=== PATIENT | male | born 1960 ===

== ENCOUNTER → 2022-10-08 08:53 | Outpatient (CLI) | payer OTHER, SELFPAY ==
--- NOTE | ~2022-10-08 | CT_ITS ---
EXAMINATION: CT abdomen pelvis wo/w con DATE: 10/08/2022 10:03 INDICATION: Gross hematuria. Prostatitis. TECHNIQUE: Computed tomography (CT) of the abdomen and pelvis was performed without and subsequently with 130 CC Omnipaque 350 intravenous contrast. Automated exposure control and iterative reconstructi on technique were employed. Exam dose: 1836.46 mGy-cm total exam DLP. COMPARISON: None. FINDINGS: Bilateral fat-containing small foramen of [place]dalek hernias. The lung bases are clear of co nsolidation. Normal heart size. No pericardial or pleural effusion. The liver, gallbladder, bile ducts, spleen, pancreas, pancreatic duct, and adrenal glands and kidneys appear normal. No urinary tract calculus or hydroureteronephrosis. No filling defect of the renal co llecting structures, ureters or urinary bladder is evident. There is moderate diffuse thickening of t he urinary bladder, likely due to severe prostatomegaly. There are numerous prostate calcifications. Fat-containing left inguinal hernia. Normal caliber of the abdominal aorta. No intraperitoneal or retroperitoneal or pelvic mass lesion or adenopathy or ascites. Normal appendix. No suspicious osteolytic or osteoblastic lesions are noted. There are numerous diverticula of the sig moid colon; no CT evidence of diverticulitis. No bowel obstruction, bowel wall thickening, pneumatosi s or intraperitoneal free air is detected. IMPRESSION: Severe prostatomegaly, prostate calcification, with moderate associated bladder wall thi ckening Fat-containing left inguinal hernia Reviewed, dictated and finalized at [facility]. Reviewed, dictated and finalized at [facility]. [employer] IMPRESSION: Severe prostatomegaly, prostate calcification, with moderate assoc iated bladder wall thickening Fat-containing left inguinal hernia
[2022-10-08 09:18] LABS: Estimated Glomerular Filt Rate > 60
== END ==
PROVIDERS: PCP Family Medicine
DX: R31.0 Gross hematuria (principal); N41.9 Inflammatory disease of prostate, unspecified; K40.90 Unilateral inguinal hernia, without obstruction or gangrene, not specified as recurrent
CPT/HCPCS: 74178; Q9967